=== PATIENT | female | born 1950 | race Caucasian/White ===

== ENCOUNTER 2018-06-22 10:54 | Inpatient (IN) | payer MEDICARE, MEDICAID ==
[2018-06-22 11:37] VITALS: BP 134/75
[2018-06-22] MEDS ORDERED: Magnesium Hydroxide (MOM) 30 mL UDC PO PRN (12:12)
[2018-06-22] MEDS ORDERED: Maalox 30 mL Cup PO PRN (12:12)
--- NOTE | 2018-06-23 03:13 | History & Physical ---
ADMIT DATE: REASON FOR CONSULTATION: For Internal Medicine coverage. HISTORY OF PRESENT ILLNESS: This is a 67-year-old -[place] female with past medical history of schizophrenia, who was brought in because of aggressive behavior. A few hours prior to admission, the patient was very aggressive, agitated, and showed some violent behavior towards residents and staff at the shelter. She also refused to take her medications. Police was called and she was placed on a 5150 hold. She was transported to [facility] [place] [facility]. Workup done turned out to be negative. She was subsequently transferred to [facility]. PAST MEDICAL HISTORY: 1. Schizophrenia. 2. Bipolar disorder. 3. Possible hypertension. CURRENT MEDICATIONS: Currently on acetaminophen, lorazepam, magnesium hydroxide as well as zolpidem. ALLERGIES: No known drug allergies. SOCIAL AND FAMILY HISTORY: I was not able to obtain from the patient because she is not cooperative at the present time. REVIEW OF SYSTEMS: Again, I was not able to decipher directly from the patient because of the same reason. PHYSICAL EXAMINATION: GENERAL: The patient is awake, not in any distress. Not agitated on a wheelchair. VITAL SIGNS: Her blood pressure is 134/75, pulse 67, and temperature 97 degrees. SKIN: Good turgor, warm, no rash, no jaundice appreciated. HEENT: Head normocephalic, atraumatic. Eyes: Extraocular muscles intact. Pupils equal, round, reactive to light and accommodates. Anicteric sclerae. Pale conjunctivae. Nose, midline nasal septum. Mouth: Dry mucosa, poor dentition. NECK: Supple, no adenopathy, no thyromegaly, no bruits. Trachea palpated in the midline. CHEST AND CARDIOVASCULAR: S1, S2. No rub, murmur, nor gallop appreciated. Point of maximal impulse fifth intercostal space, left midclavicular line. No abdominal or femoral bruits appreciated. LUNGS: Equal expansion, no use of accessory muscles. No supraclavicular retractions. Decreased breath sounds, but clear to auscultation without any wheeze. Breast symmetrical, without any discharge. ABDOMEN: Flat and soft. Positive for bowel sounds. No bruits either diastolic or systolic. RECTAL: Deferred. GENITOURINARY: Deferred. MUSCULOSKELETAL: No effusions present in her joints with adequate range of motion. EXTREMITIES: No evidence of edema, cyanosis, nor clubbing with palpable femoral, popliteal, and dorsalis pedis pulses. NEUROLOGIC: The patient is alert, verbal, motor is 5/5. Sensory intact. IMPRESSION: 1. Acute psych decompensation. 2. History of schizophrenia. 3. History of bipolar disorder. 4. Possible hypertension. PLAN: 1. Monitor blood pressure closely. 2. Antipsychotic medication. JOB# [id number]
[2018-06-23 07:31] LABS: % BASOPHILS 0.8 % (0.0-2.0); % EOSINOPHILS 1.8 % (0.0-5.0); % LYMPHOCYTES 28.8 % (20.0-50.0); % MONOCYTES 11.2 % (2.0-10.0); % NEUTROPHILS 57.4 % (40.0-80.0); EOSINOPHILE ABSOLUTE 0.1 Th/cmm (0.1-0.4); HEMATOCRIT 45.2 % (41.0-60); HEMOGLOBIN 14.9 gm/dL (12-16); LYMPHOCYTE ABSOLUTE 1.5 Th/cmm (1.5-3.0); MEAN CELL VOLUME 94.8 fl (81-100); MEAN CORPUSCULAR HEMOGLOBIN 31.3 pg (27.0-31.0); MEAN PLATELET VOLUME 8.5 fl; MONOCYTE ABSOLUTE 0.6 Th/cmm (0.3-1.0); NEUTROPHILE ABSOLUTE 2.9 Th/cmm (1.8-8.0); PLATELET COUNT 199 Th/cmm (150-400); RED BLOOD COUNT 4.76 Mil/cmm (3.80-5.20); RED CELL DISTRIBUTION WIDTH 14.6 % (11.5-20.0); WHITE BLOOD COUNT 5.1 Th/cmm (4.8-10.8)
[2018-06-23 07:47] LABS: ALB/GLOB RATIO 1.3 (1.0-1.8); ALBUMIN 3.6 gm/dL (3.7-5.3); ALKALINE PHOSPHATASE 59 U/L (34-104); ANION GAP 10.4 (7.0-16.0); BILIRUBIN,TOTAL 0.5 mg/dL (0.3-1.0); BUN - UREA NITROGEN 19 mg/dL (7-25); CALCIUM SERUM 9.1 mg/dL (8.6-10.3); CARBON DIOXIDE 24.5 mEq/L (21.0-31.0); CHLORIDE 107 mEq/L (98-107); CHOLESTEROL 152 mg/dL (<200); CREATININE - SERUM 0.7 mg/dL (0.6-1.2); GFR AFRICAN-AMERICAN > 60.0 ml/min (>90); GFR NON AFRICAN-AMERICAN > 60.0 ml/min; GLUCOSE 89 mg/dL (70-105); HDL -HIGH DENSITY LIPOPROTEIN 83 mg/dL (23-92); POTASSIUM SERUM 3.9 mEq/L (3.5-5.1); SGOT 22 U/L (13-39); SGPT/ALT 22 U/L (7-52); SODIUM SERUM 138 mEq/L (136-145); TOTAL PROTEIN,SERUM 6.3 gm/dL (6.0-8.3); TRIGLYCERIDES 59 mg/dL (<150)
--- NOTE | 2018-06-23 13:07 | Psychiatric Evaluation ---
DATE OF SERVICE: 06/22/2018 IDENTIFYING INFORMATION: The patient is a 67-year-old female. CHIEF COMPLAINT: No clue. HISTORY OF PRESENT ILLNESS: The patient was admitted because of aggressive behavior. The patient was very aggressive and agitated, showed some violent behavior towards the residents and the staff at the [facility]. She also refused to take her medication. Police was called and she was placed on a hold. She was transferred to [facility] [place] [facility]. She was worked up and medically cleared with history of schizophrenia. The patient herself was a poor historian, looked disheveled, internally preoccupied, unable to make safe plan for her self-care or participate in meaningful conversation. PAST PSYCHIATRIC HISTORY: Schizophrenia probably or bipolar disorder. The patient is unable to tell me if she has a prior suicide attempt. MEDICAL HISTORY: No known drug allergies. The patient is diagnosed by Dr. Lester with possible hypertension. FAMILY AND SOCIAL HISTORY: Unable to tell me her age, where she is, why she is here. MENTAL STATUS EXAMINATION: The patient is appropriately dressed, not very well groomed. She looked disheveled, disorganized, internally preoccupied, hostile, irritable, easily agitated, unable to tell me the date, where she is, why she is here, unable to participate in meaningful conversation or make safe plan for her self-care, unpredictable, impulsive, and needing redirection. Her long and short term memory are poor, unable to tell me her age, where she is, why she is here, and she believes she is in [place]. Unable to make safe plan for her self-care, very poor insight, and her insight and judgment are impaired. IMPRESSION: Psychosis, not otherwise specified, rule out bipolar disorder with schizophrenia, also dementia. MEDICAL DIAGNOSIS: Possible hypertension. PLAN: The patient will be started on Abilify, do group therapy, milieu therapy, and individual therapy. ESTIMATED LENGTH OF STAY: 3-7 days. DISCHARGE CRITERIA: Decrease in psychosis, agitation, aggression, and after discharge, outpatient treatment. JOB# [id number]
[2018-06-24] MEDS: Multivitamin Tab PO SCH (08:41)
--- NOTE | 2018-06-24 23:35 | Progress Notes ---
DATE: 06/24/2018 SUBJECTIVE: Case was discussed with staff of the patient, reviewed records. The patient continues to be aggressive. She continues to be easily agitated. She continues to have poor insight, unable to make safe plan for self-care or participate in a meaningful conversation. She continues to be unpredictable, impulsive, and confused. She has been compliant with the medication with no side effects, no sedation, no nausea, and no extrapyramidal symptoms. The patient tolerated the Abilify with no side effects. We will continue to work with the patient in group therapy, milieu therapy, and adjust the medications as needed. JOB# [id number]
[2018-06-25] MEDS: Multivitamin Tab PO SCH (08:57)
--- NOTE | 2018-06-26 05:33 | Progress Notes ---
DATE: SUBJECTIVE: Chart reviewed and the patient interviewed. Also discussed the patient's condition with the staff and reviewed records and labs. The patient is still aggressive and is still easily agitated and easily irritable. The patient also is still able to follow directions, but she still needs a lot of redirections. The patient also still has difficulty to provide any information about a safe plan for her self-care and she still needs lot of monitoring because of her impulsivity and confusion as well as unpredictable behavior. Otherwise, the patient continued to comply with taking her medications including Abilify 5 mg every day with no side effects. ASSESSMENT: The patient is still psychotic and still needs close monitoring. TREATMENT PLAN: Continue to monitor her behavior and her condition closely. Also, continue adjusting psychotropic medications and follow up closely. JOB# [id number]
[2018-06-26] MEDS: Multivitamin Tab PO SCH (09:17)
--- NOTE | 2018-06-26 14:27 | Progress Notes ---
DATE: 06/26/2018 SUBJECTIVE: Chart reviewed and the patient interviewed. Also discussed the patient's condition with the staff and reviewed records and labs. The patient is still confused and she is still easily agitated and easily irritable. The patient also is interacting minimally with peers and with others. The patient also is still suspicious and is still paranoid. Otherwise, the patient is cooperative and compliant with taking her Abilify with no side effects. ASSESSMENT: The patient is still confused and is still agitated. TREATMENT PLAN: Continue to monitor her behavior and her condition closely. Also, we will increase Abilify to 7.5 mg every day and will continue to work on her ineffective coping and her irritability. Also, working with outsole caser in regard to discharge plans and placement issue. JOB# [id number]
[2018-06-27] MEDS: Multivitamin Tab PO SCH (09:32)
[2018-06-28] MEDS: Multivitamin Tab PO SCH (08:35)
--- NOTE | 2018-06-29 05:02 | Progress Notes ---
DATE: 06/28/2018 SUBJECTIVE: The patient was seen and evaluated. The patient's chart reviewed. This is a psychiatric followup covering for Dr. Puri. The patient presented here initially aggressive, agitated, violent behavior toward residents at her senior living, has a history of schizophrenia. CURRENT MEDICATIONS: Include the following: Abilify 7.5 mg, Ativan as needed, Ambien. Overnight, nursing staff reported the patient continues to be irritable, agitated. Today on [id number] evaluation, she is guarded, minimized, disengaged in the interview. ASSESSMENT AND PLAN: The patient with a history of schizophrenia and presented irritable, agitated and unable to formulate a safe plan. We will continue with primary psychiatrist treatment plan and goals. JOB# [id number]
[2018-06-29] MEDS: Multivitamin Tab PO SCH (08:36)
--- NOTE | 2018-06-29 19:28 | Progress Notes ---
DATE: 06/29/2018 SUBJECTIVE: The patient was seen and evaluated. The patient's chart reviewed. Nursing staff reporting that the patient can be easily triggered and agitated. Today on [id number] evaluation, the patient denies any side effects of the Abilify, minimally interactive in her interview and avoidant in her smoking break. ASSESSMENT AND PLAN: History of schizophrenia who continues to be easily agitated, irritable and impulsive. We will continue with primary psychiatrist's treatment plan and goals. No side effects noted. The patient tolerated medications well. JOB# [id number]
--- NOTE | 2018-06-29 22:18 | Progress Notes ---
DATE: 06/27/2018 SUBJECTIVE: Chart reviewed and the patient interviewed. Also, discussed the patient's condition with the staff and reviewed records and labs. The patient is still forgetful and is still having disorganized thoughts. The patient also is still confused. The patient also is restless and she is still needs lots of redirections. She also is still forgetful. Otherwise, the patient is compliant with taking her medications with no side effects of medications. ASSESSMENT: The patient is still confused and still needs redirections. TREATMENT PLAN: Continue to monitor behavior and condition closely. Also, continue adjusting psychotropic medications and working on behavioral modifications. JOB# [id number]
[2018-06-30] MEDS: Multivitamin Tab PO SCH (08:39)
--- NOTE | 2018-06-30 23:27 | Progress Notes ---
DATE: SUBJECTIVE: Chart reviewed and the patient interviewed. Also discussed the patient's condition with the staff and reviewed records and labs. The patient's affect is brighter. The patient is less irritable and less agitated. She also is cooperative with her treatment. The patient denies any intention to harm herself or others. Also, started follow the direction. The patient is calm and cooperative and the patient is ready for discharge. ASSESSMENT AND PLAN: We will discharge the patient today if placement is available. We will continue to monitor her behavior and her condition closely as an outpatient. JOB# [id number]
[2018-07-01] MEDS: Multivitamin Tab PO SCH (08:38)
--- NOTE | 2018-07-01 16:48 | Progress Notes ---
DATE: SUBJECTIVE: Chart reviewed and the patient interviewed. Also discussed the patient's condition with the staff and reviewed records and labs. The patient is still oriented to place, person, but not to time or date. The patient also has labile affect. The patient also is still easily agitated and easily irritable. Otherwise, the patient is compliant with taking medications with no side effects of medications. ASSESSMENT: The patient is still anxious and confused. TREATMENT PLAN: We will continue monitoring her behavior and her condition closely. Also, the patient was supposed to be discharged yesterday, but the behavioral health case manager was not been able to get placement for the patient and the patient is still in the hospital and continue to work on discharge of the patient. PSYCHIATRIC# [id number]
[2018-07-02] MEDS: Multivitamin Tab PO SCH (08:11)
--- NOTE | 2018-07-03 00:23 | Discharge Summary ---
DATE OF DISCHARGE: 07/02/2018 AGE: 67. SEX: Female. PHYSICIAN: Dr. Cutler. FINAL DIAGNOSIS: PRIMARY DIAGNOSIS: Bipolar disorder, moderate to severe, with psychotic features. SECONDARY DIAGNOSIS: Dementia. REASON FOR HOSPITALIZATION: The patient was admitted to the hospital because of aggressive behavior and agitation and difficulty following any of staff direction. HOSPITAL COURSE: The patient continued to be in irritable mood and agitated. The patient also was restless. She also was interacting minimally with others. She also was easily agitated. The patient was given Abilify and the dose adjusted to 7.5 mg every day. Gradually, the patient's affect was brighter. The patient was calmer and less agitated and less irritable. The patient's placement was an issue and finally [facility] accepted the patient. AFTER DISCHARGE PLANS: The patient discharged from the hospital with plans for outpatient treatment and follow up in [facility]. EXPECTED OUTCOME AFTER DISCHARGE: Fair if the patient continues with her treatment and with her outpatient treatment. [facility]# [id number]
== END 2018-07-02 15:30 | DRG 885 ==
LOC: GERO2 10:54
PROVIDERS: ADMIT Psychiatry & Neurology Psychiatry; ATTEND Psychiatry & Neurology Psychiatry
DX: F31.5 Bipolar disorder, current episode depressed, severe, with psychotic features (principal); F23 Brief psychotic disorder; F41.9 Anxiety disorder, unspecified; F03.90 Unspecified dementia, unspecified severity, without behavioral disturbance, psychotic disturbance, mood disturbance, and anxiety
CPT/HCPCS: 36415-UA; 80053-TC; 80061-TC; 83036-90; 84443-TC; 85025-TC; G0410; Z7610